=== PATIENT | female | born 1995 | race Asian ===

== ENCOUNTER 2025-03-11 08:55 | Emergency (ER) | payer OTHER, SELFPAY ==
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
[2025-03-11 09:03] VITALS: BP 112/66; BP 95/52; PULSE 78; PULSE 92; RESP 16; TEMP 36.5; O2SAT 97; O2SAT 99; BMI 22.8
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
[2025-03-11 15:25] VITALS: BP 96/54; PULSE 76; RESP 15; TEMP 36.5; O2SAT 100
== END 2025-03-11 15:33 | disposition home or self-care (01) ==
PROVIDERS: Emergency Provider Emergency Medicine Emergency Medical Services
DX: S06.0X0A Concussion without loss of consciousness, initial encounter (principal); Y04.0XXA Assault by unarmed brawl or fight, initial encounter; Y92.89 Other specified places as the place of occurrence of the external cause; F20.9 Schizophrenia, unspecified
CPT/HCPCS: 70450; 70486; 72125; 99284

== ENCOUNTER → 2025-03-11 10:23 | Outpatient (BNV) | payer OTHER, SELFPAY | PROVIDERS: Emergency Provider Emergency Medicine Emergency Medical Services; Visit Provider Radiology Diagnostic Radiology | DX: M54.2 Cervicalgia (principal); S00.83XA Contusion of other part of head, initial encounter; R51.9 Headache, unspecified | CPT/HCPCS: 70450; 70486; 72125 ==